=== PATIENT | female | born 1980 | race African-American/Black ===

== ENCOUNTER 2017-02-25 05:25 | Emergency (ER) | payer MEDICAID, OTHER ==
[~2017-02-25 05:25] MED LIST: AMOX875T20 PO; DILTCD240 PO; EC-N500T7 PO
[2017-02-25 05:26] VITALS: BP 162/91; PULSE 89; RESP 16; TEMP 98.8; O2SAT 98
[2017-02-25] MEDS ORDERED: DEXAMETHASONE SOD PHOS 4 MG/ML VIAL IM ONE (05:45)
--- NOTE | 2017-02-25 05:47 | PD ---
HPI Chief Complaint: Cold / Flu Symptoms Time Seen by Provider: 05:41 Travel History International Travel<30 days: No Contact w/Intl Traveler<30days: No History of Present Illness HPI 36-year-old female presents to emergency department for evaluation of right- sided throat pain and right ear pain worsening over the last 2 days. Patient reports subjective fever and chills. No body aches. Pain is a constant, throbbing, 6 out of 10. Denies any trauma. No cough or chest congestion. Mild nausea without vomiting.. No other symptoms to report. PFSH Past Medical History Diminished Hearing: No Hypertension: Yes Kidney Stones: Yes Immunizations Current: Yes ?: Unknown : 4 Para: 4 Miscarriage: 0 : 0 Tubal Ligation: Yes (2001) Social History Alcohol Use: No Tobacco Use: Yes Substance Use: No Allergies-Medications (Allergen,Severity, Reaction): Coded Allergies: No Known Allergies (Verified Adverse Reaction, Unknown, 02/25/17) Reported Meds & Prescriptions Reported Meds & Active Scripts Active Prednisone 50 Mg Tab 50 Mg PO DAILY 5 Days Augmentin (Amoxicillin-Clavulanate) 875-125 Mg Tab 1 Tab PO BID 10 Days Review of Systems Except as stated in HPI: all other systems reviewed are Neg Physical Exam Narrative GENERAL: Well-nourished, well-developed female patient, in no acute distress SKIN: Focused skin assessment warm/dry. HEAD: Normocephalic. No mastoid tenderness EARS: Bilateral pinnae and external canals appear within normal limits. Right tympanic membrane is bulging with a serous effusion, Bilateral tympanic membranes without erythema, dullness or perforation. EYES: No scleral icterus. No injection or drainage. ENT: Mucosa pink and moist. Neck the erythema with exudates of the pharynx. 2 + plus tonsillar edema on the right. No uvular edema. No uvular, palatal, or tonsillar deviation. Airway patent. Nasal turbinates appear normal without nasal blood, purulent drainage or septal hematoma. NECK: Supple, trachea midline. Right anterior cervical lymphadenopathy. CARDIOVASCULAR: Regular rate and rhythm without murmurs, gallops, or rubs. RESPIRATORY: Breath sounds equal bilaterally. No accessory muscle use. GASTROINTESTINAL: Abdomen soft, non-tender, nondistended. MUSCULOSKELETAL: No cyanosis, or edema. BACK: Nontender without obvious deformity. No CVA tenderness. Data Data Last Documented VS Vital Signs Date Time Temp Pulse Resp B/P (MAP) Pulse Ox O2 Delivery O2 Flow Rate FiO2 02/25/17 06:17 02/25/17 05:26 98.8 89 16 98 Room Air Orders Orders Dexamethasone Inj (Decadron Inj) (02/25/17 05:45) Group A Rapid Strep Screen (02/25/17 05:45) Strep Culture (Group A) (02/25/17 05:45) Ed Discharge Order (02/25/17 06:08) MDM Medical Decision Making Medical Screen Exam Complete: Yes Emergency Medical Condition: Yes Medical Record Reviewed: Yes Differential Diagnosis Strep pharyngitis versus peritonsillar cellulitis versus abscess Narrative Course 36-year-old female presents to emergency department for evaluation. Patient appears without distress. Physical findings are consistent with peritonsillar cellulitis. Patient be started on oral antibiotics, short course oral steroids , encouraged follow-up with primary care provider. She agrees to return immediately with any acute worsening of symptoms. Diagnosis Primary Impression: Peritonsillar cellulitis Additional Impression: Otalgia of right ear Referrals: Primary Care Physician Patient Instructions: General Instructions, Peritonsillar Abscess (ED) Additional Instructions: Warm salt water gargles may help to alleviate symptoms Follow-up with a primary care provider Tylenol or ibuprofen as directed on the package as needed for pain Return immediately to the emergency department with any acute worsening of symptoms Med/Other Pt SpecificInfo: Prescription(s) given Scripts Prednisone (Prednisone) 50 Mg Tab 50 MG PO DAILY for 5 Days, #5 TAB 0 Refills Prov: Ellyn Morales 02/25/17 Amoxicillin-Clavulanate (Augmentin) 875-125 Mg Tab 1 TAB PO BID for Infection for 10 Days, #20 TAB 0 Refills Prov: Ellyn Morales 02/25/17 Disposition: 01 DISCHARGE HOME Condition: Stable Ellyn Morales Feb 25, 2017 05:47
[2017-02-25] MEDS ORDERED: AUGM875T3 PO (06:12)
[2017-02-25] MEDS ORDERED: PRED50 PO (06:12)
== END 2017-02-25 06:20 | disposition home or self-care (01) ==
LOC: NEPD 05:25
DX: J36 Peritonsillar abscess (principal); H92.01 Otalgia, right ear; R11.0 Nausea; I10 Essential (primary) hypertension; Z87.442 Personal history of urinary calculi; Z72.0 Tobacco use
CPT/HCPCS: 86403; 87081; 87880; 96372; 99284; J1100